=== PATIENT | female | born 1960 | race African-American/Black ===

== ENCOUNTER 2019-07-06 07:26 | Emergency (ER) | payer MEDICARE ==
[2019-07-06 07:43] VITALS: BP 161/107
--- NOTE | 2019-07-06 08:56 | ER Document Report ---
ED General - General Chief Complaint: Abdominal Pain Stated Complaint: HEADACHE Time Seen by Provider: 07/06/19 08:26 Notes: 58-year-old female who comes in with multiple complaints. She told the triage staff that she was hurting all over. When I enter the room she is on top of her bed standing on her knees upright facing the wall talking to someone who was not present in the wall. When asked what she was doing she stated nothing the pat ient seems to be responding to internal stimuli she complains of chest pain abdominal pain and just hurts all over states she is sick. She denies suicidal homicidal thoughts denies voices. However the patient will start talking to individuals were not there. Patient cannot rate or localize any severity of pain or problems. TRAVEL OUTSIDE OF THE [place] IN LAST 30 DAYS: No - Related Data Allergies/Adverse Reactions: No Known Allergies Allergy (Verified 07/06/19 07:27) Past Medical History - Social History Smoking Status: Unknown if Ever Smoked Family History: None Review of Systems - Review of Systems Constitutional: denies: Chills, Fever Cardiovascular: denies: Chest pain Respiratory: denies: Short of breath Gastrointestinal: denies: Abdominal pain, Nausea Neurological/Psychological: Hallucinations. denies: Headaches -: Yes All other systems reviewed and negative Physical Exam - Vital signs Vitals: Temp Pulse Resp BP Pulse Ox 98.6 F 122 H 18 161/107 H 94 07/06/19 07:41 07/06/19 07:41 07/06/19 07:41 07/06/19 07:41 07/06/19 07:41 - Notes Notes: GENERAL_APPEARANCE: well_nourished, alert, bizarre behaving VITALS: reviewed, see vital signs table. HEAD: no_swelling\tenderness on the head. EYES: PERRL, EOMI, conjunctiva_clear. NOSE: no_nasal_discharge. MOUTH: (-)decreased moisture. THROAT: no_tonsilar_inflammation, no_airway_obstruction. no_lymphadenopathy NECK: supple, no_neck_tenderness, (-)thyromegaly. BACK: no_back_tenderness. CHEST_WALL: Diffuse parasternal_chest_tenderness. LUNGS: no_wheezing, no_rales, no_rhonchi, (-)accessory muscle use, good air exchange bilateral. HEART: normal_rate, normal_rhythm, normal_S1, normal_S2, (-)S3, (-)S4, no_murmur, no_rub. ABDOMEN: normal_BS, soft, diffuse_abd_tenderness, (-)guarding, (-)rebound, no_organomegaly, no_abd_masses. EXTREMITIES: good pulses in all_extremities, no_swelling\tenderness in the extremities, no_edema. SKIN: warm, dry, good_color, no_rash. MENTAL_STATUS: speech_clear, oriented_X_3, R_affect, responds_appropriately to questions. NEURO: Neg Motor or Sensory Deficits on exam, CN 2-12 intact, DTR 2+ symmetric x 4, No cerbellar signs PSYCH: The patient denies suicidal homicidal thoughts or hallucinations however she will stop listening to you or stop talking and then talk to somebody who is not there she is obviously not responding to internal stimuli or voices. She has no insight into this at all. Course - Re-evaluation Re-evalutation: 07/06/19 08:56 The patient complains of pretty much everything. We will do a broad work-up. She is obviously responding to internal stimuli. She thinks she sick she is talking to people who are not there. We will likely have her see psychiatry once medically cleared. - Vital Signs Vital signs: Temp Pulse Resp BP Pulse Ox 98.6 F 122 H 18 161/107 H 94 07/06/19 07:41 07/06/19 07:41 07/06/19 07:41 07/06/19 07:41 07/06/19 07:41 - Laboratory Result Diagrams: 07/06/19 08:35 07/06/19 08:35 Laboratory results interpreted by me: 07/06/19 07/06/19 08:35 08:35 RDW 15.5 H Sodium 145.2 H Potassium 3.5 L Est GFR (Non-Af Amer) 56 L Glucose 127 H Salicylates < 1.0 L Acetaminophen < 10 L - Diagnostic Test Radiology reviewed: Reports reviewed Radiology results interpreted by me: 07/06/19 11:07 Laboratory shows some mild dehydration with the elevated sodium but otherwise nothing significant imaging is normal. The patient still acting bizarrely. She has been following instructions we gave her something to eat. We went back to check her and she had eloped from the department. She did not voice any suicidal ideation she is obviously hearing voices but she denies it. At this time I do not believe I have enough to IVC her. She has eloped from the department. Discharge - Discharge Clinical Impression: Psychosis Qualifiers: Psychosis type: unspecified psychosis type Qualified Code(s): F29 - Unspecified psychosis not due to a substance or known physiological condition Condition: Good Disposition: ELOPED
[2019-07-06 09:02] LABS: ABSOLUTE BASOPHILS # (AUTO) 0.1 10^3/uL (0.0-0.2); ABSOLUTE LYMPHOCYTES (AUTO) 1.9 10^3/uL (0.5-4.7); ABSOLUTE MONOCYTES (AUTO) 0.4 10^3/uL (0.1-1.4); ABSOLUTE NEUT (AUTO) 6.3 10^3/uL (1.7-8.2); BASOPHILS % (AUTO) 0.7 % (0-2); EOSINOPHILS % (AUTO) 0.5 % (0-6); HEMATOCRIT 40.4 % (36.0-47.0); HEMOGLOBIN 13.3 g/dL (12.0-15.5); LYMPHOCYTES % (AUTO) 21.8 % (13-45); MEAN CORPUSCULAR HEMOGLOBIN 27.3 pg (27.0-33.4); MEAN CORPUSCULAR HGB CONC 32.8 g/dL (32.0-36.0); MEAN CORPUSCULAR VOLUME 83 fl (80-97); PLATELET COUNT 244 10^3/uL (150-450); RED BLOOD COUNT 4.86 10^6/uL (3.72-5.28); RED CELL DISTRIBUTION WIDTH 15.5 % (11.5-14.0); TOTAL CELLS COUNTED % (AUTO) 100 %; WHITE BLOOD COUNT 8.7 10^3/uL (4.0-10.5)
[2019-07-06 09:18] LABS: ACETAMINOPHEN < 10 ug/mL (10-30); ALBUMIN 4.5 g/dL (3.5-5.0); ALCOHOL < 10 mg/dL (NONE DETECTED); ALKALINE PHOSPHATASE 121 U/L (38-126); ANION GAP 10 (5-19); ASPARTATE AMINO TRANSFERASE 33 U/L (14-36); BILIRUBIN,DIRECT 0.2 mg/dL (0.0-0.4); BILIRUBIN,TOTAL 0.4 mg/dL (0.2-1.3); BLOOD UREA NITROGEN 13 mg/dL (7-20); CALCIUM 9.6 mg/dL (8.4-10.2); CARBON DIOXIDE 29 mmol/L (22-30); CHLORIDE 106 mmol/L (98-107); GLUCOSE 127 mg/dL (75-110); POTASSIUM 3.5 mmol/L (3.6-5.0); SALICYLATE < 1.0 mg/dL (2.0-20.0); TOTAL PROTEIN 7.9 g/dL (6.3-8.2)
--- NOTE | 2019-07-06 09:35 | RADIOLOGY REPORT (SQ) ---
EXAM DESCRIPTION: ACUTE ABDOMEN SERIES COMPLETED DATE/TIME: 07/06/2019 9:26 am REASON FOR STUDY: pain all over COMPARISON: None. NUMBER OF VIEWS: Three views. TECHNIQUE: Frontal chest, supine abdomen and upright/decubitus abdomen radiographic images acquired. LIMITATIONS: None. FINDINGS: CHEST: Lungs clear of infiltrates. FREE AIR: None. No abnormal gas collections. BOWEL GAS PATTERN: Nonobstructive pattern. No dilated loops or air fluid levels. CALCIFICATIONS: No suspicious calcifications. HARDWARE: None in the abdomen. SOFT TISSUES: No gross mass or suggestion of organomegaly. Aortic atherosclerosis. BONES: Degenerative changes at the pubic symphysis. No acute bony abnormality. OTHER: No other significant finding. IMPRESSION: NO RADIOGRAPHIC EVIDENCE FOR ACUTE ABDOMINAL DISEASE. TECHNICAL DOCUMENTATION: JOB ID: [id number] [employer]- All Rights Reserved Reading location - IP/workstation name: [email or web address]
--- NOTE | 2019-07-06 09:36 | EKG REPORT ---
SEVERITY:- BORDERLINE ECG - SINUS TACHYCARDIA BORDERLINE T WAVE ABNORMALITIES : Confirmed by: Nicole Nelson 06-Jul-2019 09:35:34
[2019-07-06 11:38] LABS: APPEARANCE,URINE SLIGHTLY-CLOUDY; BILIRUBIN,URINE NEGATIVE (NEGATIVE); COLOR,URINE YELLOW; GLUCOSE, URINE NEGATIVE (NEGATIVE); KETONES,URINE TRACE mg/dL (NEGATIVE); LEUKOCYTE ESTERASE,URINE NEGATIVE (NEGATIVE); NITRITE,URINE NEGATIVE (NEGATIVE); PROTEIN,URINE NEGATIVE (NEGATIVE); URINE SPECIFIC GRAVITY 1.016; UROBILINOGEN,URINE NEGATIVE mg/dL (<2.0)
[2019-07-06 12:48] LABS: URINE AMPHETAMINES SCREEN NEGATIVE; URINE BARBITURATES SCREEN NEGATIVE; URINE BENZODIAZEPINES SCREEN NEGATIVE; URINE COCAINE SCREEN NEGATIVE; URINE MARIJUANA (THC) SCREEN UNCONFIRMED POSITIVE; URINE METHADONE SCREEN NEGATIVE; URINE PHENCYCLIDINE SCREEN NEGATIVE
== END 2019-07-06 11:20 | disposition left against medical advice (07) ==
LOC: ER 07:26
DX: F29 Unspecified psychosis not due to a substance or known physiological condition (principal); E86.0 Dehydration; R10.9 Unspecified abdominal pain; R07.9 Chest pain, unspecified; Z53.20 Procedure and treatment not carried out because of patient's decision for unspecified reasons
CPT/HCPCS: 36415; 74022; 80053; 80307; 81001; 83690; 84484; 85025; 93005; 93010; 99281